=== PATIENT | female | born 1950 | race African-American/Black ===

== ENCOUNTER → 2024-02-09 14:32 | Outpatient (BNV) | payer MEDICARE, SELFPAY | PROVIDERS: PCP Internal Medicine; Referring Provider Internal Medicine; Visit Provider Internal Medicine | DX: R79.89 Other specified abnormal findings of blood chemistry (principal) | CPT/HCPCS: 99204; 99213; G2211 ==

== ENCOUNTER 2024-05-17 13:00 | Outpatient (REF) | payer MEDICARE, SELFPAY ==
[2024-05-20 22:29] LABS: Prot Elec - Albumin 4.5 g/dL (3.8-4.8); Prot Elec - Alpha1 0.3 g/dL (0.2-0.3); Prot Elec - Alpha2 0.7 g/dL (0.5-0.9); Prot Elec - Beta 1 0.5 g/dL (0.4-0.6); Prot Elec - Beta 2 0.5 g/dL (0.2-0.5); Prot Elec - Gamma 1.4 g/dL (0.8-1.7); Prot Elec - Total Protein 7.9 g/dL (6.1-8.1)
[2024-05-21 10:58] LABS: Kappa/Lambda Lt Ch Free Ratio 1.64 (0.26-1.65); Lambda Light Chain, Free Serum 12.8 mg/L (5.7-26.3)
[2024-05-21 23:13] LABS: IgA 223 mg/dL (70-320); IgG 1575 mg/dL (600-1540); IgM 84 mg/dL (50-300)
== END 2024-05-17 13:01 | disposition home or self-care (01) ==
LOC: HO.LAB 13:00
PROVIDERS: PCP Internal Medicine; Visit Provider Internal Medicine
DX: E83.52 Hypercalcemia (principal)
CPT/HCPCS: 36415; 82784; 83521; 84165; 84443; 86334